=== PATIENT | male | born 1990 | race Caucasian/White ===

== ENCOUNTER 2021-06-29 15:59 | Outpatient (CLI) | payer OTHER | END 2021-06-29 16:00 | disposition critical access hospital (66) | LOC: EMS 15:59 | DX: R46.89 Other symptoms and signs involving appearance and behavior (principal) | CPT/HCPCS: A0425; A0429 ==

== ENCOUNTER 2021-06-29 16:02 | Emergency (ER) | payer OTHER ==
[2021-06-29 16:25] LABS: BASOPHILS # (AUTO) 0.1 10^3/uL (0.0-0.1); BASOPHILS % (AUTO) 0.7 %; EOSINOPHILS # (AUTO) 0.6 10^3/uL (0.0-0.7); EOSINOPHILS % (AUTO) 7.3 %; HCT - HEMATOCRIT 46.3 % (42.0-52.0); HGB - HEMOGLOBIN 15.8 g/dL (14.0-18.0); LYMPHOCYTES # (AUTO) 3.6 10^3/uL (1.5-3.5); LYMPHOCYTES % (AUTO) 43.8 %; MEAN CORPUSCULAR HEMOGLOBIN 30.9 pg (27.0-31.0); MEAN CORPUSCULAR HGB CONC 34.1 g/dL (32.0-36.0); MEAN CORPUSCULAR VOLUME 90.6 fL (80.0-94.0); MEAN PLATELET VOLUME 9.3 fL (7.4-11.4); MONOCYTES # (AUTO) 0.7 10^3/uL (0.0-1.0); MONOCYTES % (AUTO) 8.3 %; NEUTROPHILS # (AUTO) 3.2 10^3/uL (1.5-6.6); NEUTROPHILS % (AUTO) 39.7 %; PLT - PLATELET COUNT 328 10^3/uL (130-450); RED BLOOD COUNT 5.11 10^6/uL (4.70-6.10); RED CELL DISTRIBUTION WIDTH 12.5 % (12.0-15.0); WHITE BLOOD COUNT 8.2 x10^3/uL (4.8-10.8)
[2021-06-29] MEDS ORDERED: NALOXONE 0.4 MG/ML VIAL ONE (16:29)
--- NOTE | 2021-06-29 16:35 | ED Physician Documentation ---
History of Present Illness - Stated complaint Stated Complaint: AMS - Chief complaint Chief Complaint: General - Additonal information Additional information: 31-year-old male is brought in by [facility] office for evaluation of unresponsiveness. He was reportedly arrested last night. Apparently he had refused to speak with officers during and after the arrest. During his video preliminary arraignment this morning, He was nonverbal with his telecommunications clerk. He was very upset with what he was being charged with and hung up on them. During the court hearing he was nonresponsive to the mechanical applications engineer. He stared directly ahead without answering any questions. Per the community service officer he was taken back to his cell. Approximately 20 minutes later he was checked on and found to have pulled the mattress from his bunk and was underneath it. Registered Health Nurse officers entered the cell pulled the mattress away and found him on his stomach. They then turned him onto the back. [facility] staff administered smelling salts as well as Narcan which did make him somewhat more responsive but he remains non-verbal. Thus he presents here to the ER. He was transported via EMS Review of Systems Unable to obtain: [facility] ED PE EXPANDED - General General: Unresponsive - HEENT HEENT: PERRL - Neck Neck: Supple w/out meningeal sx. No: Adenopathy - Cardiac Cardiac: Regular Rate, Radial strong equal, Pedal strong equal, Cap refill < 2 sec. No: Murmur Present - Respiratory Respiratory: Clear to ausultation kylah. No: Distress, Labored - Abdomen Abdomen: Normal Bowel sounds. No: Tender to palpation - Male Male : Normal Exam - Derm Derm: Normal color, Warm and dry. No: Rash - Extremities Extremities: Normal. No: Deformity, Tenderness - Neuro Neuro: Unresponsive (will not allow his own hand held above his hit to strike his head and appeared to be a controlled fall to the bed), Other (will not vocalize. + patellar reflexes bilaterally, negative babinski. localized pain with upper extremities) - GCS Eye Opening: None Motor: Localizes to Pain Verbal: None Total: 7 Results - Vitals Vitals: Vital Signs - 24 hr 06/29/21 06/29/21 06/29/21 16:10 17:35 18:00 Temperature 36.5 C Heart Rate 94 87 83 Respiratory 17 20 20 Rate Blood Pressure 135/87 H 116/82 H O2 Saturation 100 100 99 06/29/21 19:00 Temperature Heart Rate 79 Respiratory 17 Rate Blood Pressure 119/81 H O2 Saturation 100 Oxygen O2 Source Room air - EKG (time done) 1604 Rate: Rate (enter#) (93) Rhythm: NSR [place]: Normal Intervals: Normal [place] QRS: Normal Ischemia: Normal ST segments Compare to prior EKG: Old EKG unavailable Computer interpretation: Agree with computer - Labs Labs: Laboratory Tests 06/29/21 06/29/21 06/29/21 16:15 16:15 16:15 WBC 8.2 RBC 5.11 Hgb 15.8 Hct 46.3 MCV 90.6 MCH 30.9 MCHC 34.1 RDW 12.5 Plt Count 328 MPV 9.3 Neut # (Auto) 3.2 Lymph # (Auto) 3.6 H Victoria # (Auto) 0.7 Eos # (Auto) 0.6 Baso # (Auto) 0.1 Absolute Nucleated RBC 0.00 Nucleated RBC % 0.0 Sodium 136 Potassium 4.0 Chloride 99 L Carbon Dioxide 28 Anion Gap 9.0 BUN 13 Creatinine 0.9 Estimated GFR (MDRD) 98 Glucose 91 POC Whole Bld Glucose Calcium 9.0 Total Bilirubin 0.6 AST 26 ALT 21 Alkaline Phosphatase 55 Total Creatine Kinase Total Protein 7.1 Albumin 4.4 Globulin 2.7 Albumin/Globulin Ratio 1.6 Lipase 28 TSH 0.68 Urine Color Urine Clarity Urine pH Ur Specific [place] Urine Protein Urine Glucose (UA) Urine Ketones Urine Occult Blood Urine Nitrite Urine Bilirubin Urine Urobilinogen Ur Leukocyte Esterase Ur Microscopic Review Urine Culture Comments Salicylates < 6.0 Urine Opiates Screen Ur Oxycodone Screen Urine Methadone Screen Ur Propoxyphene Screen Acetaminophen < 10 L Ur Barbiturates Screen Ur Tricyclics Screen Ur Phencyclidine Scrn Ur Amphetamine Screen U Methamphetamines Scrn U Benzodiazepines Scrn Urine Cocaine Screen U Cannabinoids Screen Ethyl Alcohol < 5.0 06/29/21 06/29/21 06/29/21 16:15 16:35 16:49 WBC RBC Hgb Hct MCV MCH MCHC RDW Plt Count MPV Neut # (Auto) Lymph # (Auto) Victoria # (Auto) Eos # (Auto) Baso # (Auto) Absolute Nucleated RBC Nucleated RBC % Sodium Potassium Chloride Carbon Dioxide Anion Gap BUN Creatinine Estimated GFR (MDRD) Glucose POC Whole Bld Glucose 85 Calcium Total Bilirubin AST ALT Alkaline Phosphatase Total Creatine Kinase 230 Total Protein Albumin Globulin Albumin/Globulin Ratio Lipase TSH Urine Color YELLOW Urine Clarity CLEAR Urine pH 5.5 Ur Specific [place] 1.025 Urine Protein NEGATIVE Urine Glucose (UA) NEGATIVE Urine Ketones TRACE Urine Occult Blood TRACE-INTA Urine Nitrite NEGATIVE Urine Bilirubin NEGATIVE Urine Urobilinogen 0.2 (NORMAL) Ur Leukocyte Esterase NEGATIVE Ur Microscopic Review NOT INDICATED Urine Culture Comments NOT INDICATED Salicylates Urine Opiates Screen NEGATIVE Ur Oxycodone Screen NEGATIVE Urine Methadone Screen NEGATIVE Ur Propoxyphene Screen NEGATIVE Acetaminophen Ur Barbiturates Screen NEGATIVE Ur Tricyclics Screen NEGATIVE Ur Phencyclidine Scrn NEGATIVE Ur Amphetamine Screen POSITIVE H U Methamphetamines Scrn POSITIVE H U Benzodiazepines Scrn NEGATIVE Urine Cocaine Screen NEGATIVE U Cannabinoids Screen POSITIVE H Ethyl Alcohol - Rads (name of study) Ct head Radiology: Final report received (No acute intracranial findings) PD MEDICAL DECISION MAKING - ED course Complexity details: reviewed results, re-evaluated patient ED course: 31-year-old male is brought to the emergency department for evaluation of unresponsiveness. He was arrested last night by [facility]. Since his arrest he has been difficult with officers. He has been nonverbal refusing to answer any questions. He hung up on his court appointed patient carrier this morning. He also refused to answer questions for the mechanical applications engineer. He was sent back to his retirement cell and approximately 20 minutes later during a cell check of the officers found that he had purposely removed the mattress from his bed and was laying underneath it. They found that he would not respond to any stimulus thus he is brought to the ER. On presentation patient is nonverbal though he did focally localize pain with his upper extremities. He does have intact patellar reflexes and a negative Babinski which is appropriate for age. Screening labs are unremarkable with the exception of a urine drug screen which is positive for cannabis, amphetamine/methamphetamine. He was given a dose of Narcan here in the emergency department without any change in his responsiveness. A CT of the head shows no acute focal findings. It is unclear at this time if the patient's refusal to walk or verbalize constitutes willful disobedience versus a conversion disorder. I will attempt to give him half a milligram of Ativan in the hopes that reducing anxiety makes him more responsive. 1645: In speaking with the police officers it appears that he has begun to move more spontaneously with the administration of half a milligram of Ativan though he still not open his eyes and verbalize. He does localize pain. We will attempt another half a milligram of Ativan. 1940: On reassessment the patient is given noxious stimuli by effort of a sternal rub. Initially the patient appeared to localize the response but shortly thereafter he opened his I looked directly at me and gave me the middle finger. However he refused to verbalize. [facility] officers have spoken with the patient he has indicated he is willing to now walk to the veh icle. He is discharged in otherwise stable condition Departure - Departure Disposition: 01 Home, Self Care Clinical Impression: Methamphetamine use Altered mental status Qualifiers: Altered mental status type: unspecified Qualified Code(s): R41.82 - Altered mental status, unspecified Comments: Kendrick was seen in the emergency department today. He was seen because he had refused to interact with retirement staff and become nonverbal and would not move. Screening labs were unremarkable. The CT of his head was normal. His urine drug screen was positive for amphetamine and methamphetamine. After an extensive amount of time in the emergency department he ultimately received very noxious stimuli by which she was able to open his eyes and give this provider a middle finger. He then nodded to the officer that he would agree to walk to the vehicle. He is stable for discharge back to the retirement. If at any point you find that he does not eat, does not move, does not have bowel or bladder functions that he should return immediately to an emergency department.
[2021-06-29 16:38] LABS: MUDS CUTOFF CONCENTRATIONS CUTOFF CONC BELOW:
[2021-06-29 16:40] LABS: ACETAMINOPHEN < 10 ug/mL (10-30); ALBUMIN 4.4 g/dL (3.2-5.5); ALBUMIN/GLOBULIN RATIO 1.6 (1.0-2.2); ALKALINE PHOSPHATASE 55 IU/L (42-121); ALT ALANINE AMINOTRANSFERASE 21 IU/L (10-60); AST ASPARTATE AMINOTRANSFERASE 26 IU/L (10-42); BILIRUBIN,TOTAL 0.6 mg/dL (0.2-1.0); BUN - BLOOD UREA NITROGEN 13 mg/dL (6-20); CARBON DIOXIDE - CO2 28 mmol/L (21-32); CHLORIDE 99 mmol/L (101-111); CREATININE 0.9 mg/dL (0.6-1.2); ETOH - ETHANOL < 5.0 mg/dL; GFR - MDRD 98 (>89); GLUCOSE 91 mg/dL (70-100); LIPASE 28 U/L (22-51); SALICYLATE < 6.0 mg/dL; SODIUM 136 mmol/L (135-145); TOTAL PROTEIN 7.1 g/dL (6.7-8.2)
[2021-06-29 16:40] LABS: BILIRUBIN,URINE NEGATIVE (NEGATIVE); GLUCOSE, URINE (UA) NEGATIVE (NEGATIVE); KETONES,URINE (UA) TRACE mg/dL (NEGATIVE); LEUKOCYTE ESTERASE, URINE NEGATIVE (NEGATIVE); NITRITE,URINE NEGATIVE (NEGATIVE); OCCULT BLOOD,URINE TRACE-INTA (NEGATIVE); PH,URINE 5.5 PH (5.0-7.5); PROTEIN,URINE NEGATIVE (NEGATIVE); UROBILINOGEN,URINE 0.2 (NORMAL) E.U./dL (NORMAL)
[2021-06-29 16:41] LABS: CLARITY,URINE CLEAR (CLEAR)
[2021-06-29 16:54] LABS: AMPHETAMINE SCREEN,URINE POSITIVE (NEGATIVE); BENZODIAZEPINES SCREEN, URINE NEGATIVE (NEGATIVE); COCAINE SCREEN URINE NEGATIVE (NEGATIVE); METHAMPHETAMINES SCREEN, URINE POSITIVE (NEGATIVE); OPIATE SCREEN, URINE NEGATIVE (NEGATIVE); THC CANNABINOID SCREEN, URINE POSITIVE (NEGATIVE); TRICYCLIC ANTIDEPRESSANT,URINE NEGATIVE (NEGATIVE)
[2021-06-29 16:55] LABS: BARBITURATE SCREEN,UR NEGATIVE (NEGATIVE); METHADONE SCREEN, URINE NEGATIVE (NEGATIVE); OXYCODONE SCREEN, URINE NEGATIVE (NEGATIVE); PROPOXYPHENE SCREEN, URINE NEGATIVE (NEGATIVE)
--- NOTE | 2021-06-29 17:50 | CT Report ---
PROCEDURE: HEAD WO INDICATIONS: AMS TECHNIQUE: Noncontrast 4.5 mm thick angled axial sections acquired from the foramen magnum to the vertex. For r adiation dose reduction, the following was used: automated exposure control, adjustment of mA and/or kV according to patient size. COMPARISON: None. FINDINGS: Image quality: Excellent. CSF spaces: Basal cisterns are patent. No extra-axial fluid collections. Ventricles are normal in size and shape. Brain: No midline shift. No intracranial masses or hemorrhage. Villaseñor-white matter interface is norm al. Skull and face: Calvarium and visualized facial bones are intact, without suspicious lesions. Sinuses: Visualized sinuses and mastoids are clear. IMPRESSION: No acute intracranial abnormality. Reviewed by: Flavio Lowery on 06/29/2021 4:49 PM [facility] Approved by: Flavio Lowery on 06/29/2021 4:49 PM [facility] Station ID: [id number]
[2021-06-29] MEDS ORDERED: LORazepam 2 MG/ML VIAL IVP STA ×2 (18:17→18:44)
[2021-06-29 19:53] VITALS: BP 118/86
== END 2021-06-29 19:55 | disposition home or self-care (01) ==
LOC: EDBD → ED 16:02
DX: R41.82 Altered mental status, unspecified (principal)
CPT/HCPCS: 36415; 70450; 80053; 80306; 80307; 80320; 80329; 81003; 82550; 83690; 84443; 85025; 96374; 99284; 99285; J2060; 81001; 87086; 93005